=== PATIENT | female | born 1965 | race Caucasian/White ===

== ENCOUNTER → 2021-07-28 | Outpatient (CLI) | payer OTHER | LOC: KOH-I 15:00 | DX: M19.011 Primary osteoarthritis, right shoulder (principal) | CPT/HCPCS: 73200 ==

== ENCOUNTER → 2021-12-18 | Outpatient (CLI) | payer OTHER ==
[~2021-12-18] MED LIST: DICLOFENAC GEL 1% TOP; HYDROCHLOROTHIA25 MG PO; HYDROCODON-ACE1 EAC4 PO; LATANOPROST2.5 ML EYEBOTH; NABUMETONE500 MG PO; ZYRTEC10 MG PO
[2021-12-18 10:28] LABS: HEMOGLOBIN 13.2 gm/dl (12.3-15.3); RED BLOOD COUNT 4.17 M/UL (4.00-5.10); WHITE BLOOD COUNT 6.1 K/UL (4.5-11.0)
[2021-12-18 10:55] LABS: BUN/CREATININE RATIO 26 (0-10)
== END ==
LOC: OPSV2 09:00 → EDSTATUS 09:00 → OPSV2 09:19
PROVIDERS: Anesthesiology
DX: Z01.812 Encounter for preprocedural laboratory examination (principal)
CPT/HCPCS: 80048; 85025

== ENCOUNTER → 2021-12-24 | Outpatient (CLI) | payer OTHER ==
[~2021-12-24] MED LIST changes: +CELECOXIB200 MG PO; +COLACE100 MG PO; +ECOTRIN81 MG PO; +GABAPENTIN300 MG PO; +OXYCODONE HCL5 M1 PO; +PEPCID20 MG PO; +TYLENOL EXTRA500 MG PO; +ZOFRAN ODT 4 MG4 MG PO
[2021-12-24 13:50] LABS: BUN/CREATININE RATIO 24 (0-10)
== END ==
LOC: LAB 12:41
PROVIDERS: Orthopaedic Surgery
DX: Z01.812 Encounter for preprocedural laboratory examination (principal)
CPT/HCPCS: 36415; 80048; 86850; 86900; 86901